=== PATIENT | female | born 1995 | race Two or more races ===

== ENCOUNTER 2024-03-30 01:27 | Emergency (ER) | payer BC, MEDICAID, SELFPAY ==
[2024-03-30 01:28] VITALS: BMI 56.5
[2024-03-30 01:59] VITALS: BP 159/83; PULSE 108; RESP 17; TEMP 37.7; O2SAT 97
[2024-03-30 02:12] LABS: Collection Type, Urine Clean Catch; Squamous Epithelial Cell,Urine 0 /hpf (0-5)
--- NOTE | 2024-03-30 02:21 | EDNOTE_ITS ---
Upper Respiratory Inf. RME/HPI General Chief Complaint: Fever Stated Complaint: FEVER, BACK LOWER BACK X2DAYS Time Seen by Provider: 03/30/24 01:42 Source: patient Arrival date/time: 03/30/24 01:27 28-year-old female presents emergency department complaining of fever, body aches, and lower back pain for 2 days. Patient denies any dysuria, vaginal bleeding, vomiting, or any other associated symptoms. Mode of arrival: ambulatory Limitations: no limitations Related Data Previous Rx's ?Medication ?Instructions ?Recorded albuterol sulfate 90 mcg/actuation 2 puff inhalation Q 6H PRN 10/28/21 aerosol inhaler (Ventolin HFA) shortness of breath or wheezing #8.5 grams fluticasone 100 mcg-salmeterol 50 1 inh inhalation BID #60 ea 12/10/21 mcg/dose blistr powdr for inhalation (Advair Diskus) prednisone 10 mg tablet See Taper PO BID #6 tabs 03/02 loratadine 10 mg tablet 10 mg PO QDAY #30 tabs 12/14 promethazine-DM 6.25 mg-15 mg/5 mL 5 ml PO Q6H PRN cou gh #200 mL 12/14/21 oral syrup albuterol sulfate 90 mcg/actuation 1 puff inhalation Q 6H PRN 04/07/23 aerosol inhaler (Ventolin HFA) shortness of breath or wheezing #6.7 grams ibuprofen 600 mg tablet 600 mg PO Q8H PRN pain #20 t abs 03/30/24 oseltamivir 75 mg capsule (Tamiflu) 75 mg PO Q12H 5 da ys #10 caps 03/30/24 Allergies Allergy/AdvReac Type Severity Reaction Status Date / Time No Known Allergies Allergy Verified 04/07/23 00:47 Review of Systems Review of Systems Systems Reviewed: All systems reviewed, normal except as documented Constitutional Constitutional: Reports system reviewed and no additional complaints, except as documented, Reports body ache(s), Denies chills and Reports fever(s) Eyes Eyes: Reports system reviewed and no additional complaints, except as documented and Denies change in vision ENT Ears, Nose, Mouth, and Throat: Reports system reviewed and no additional co mplaints, except as documented, Denies disequilibrium, Denies dizziness, Denies sore throat and Denies vertigo Cardiovascular Cardiovascular: Reports system reviewed and no additional complaints, except as documented, Denies chest pain and Denies dyspnea Respiratory Respiratory: Reports system reviewed and no additional complaints, except as documented, Denies chest congestion, Denies cough and Denies dyspnea Gastrointestinal Gastrointestinal: Reports system reviewed and no additional complaints, except as documented, Denies abdominal pain, Denies nausea and Denies vomiting Musculoskeletal Musculoskeletal: Reports system reviewed and no additional complaints, except as documented, Denies abnormal gait, Denies arthralgias and Reports back pain Integumentary/Breasts Skin/Breast: Reports system reviewed and no additional complaints, except as documented, Denies erythema, Denies rash and Denies wounds Neurologic Neurologic: Reports system reviewed and no additional complaints, except as documented, Denies abnormal gait, Denies disequilibrium, Denies dizziness and Denies vertigo Past Medical History Social History SMOKING STATUS: Never smoker ED Exam General Limitations: Present no limitations General appearance: Present alert and in no apparent distress Head Head exam: Present atraumatic Eye Eye exam: Present normal appearance, PERRL and EOMI ENT ENT exam: Present normal exam, normal oropharynx and mucous membranes moist Neck Neck exam: Present normal inspection, full ROM and trachea midline Chest Chest inspection: Present normal inspection and symmetric chest wall rise Respiratory Respiratory exam: Present normal lung sounds bilaterally Cardiovascular Cardiovascular exam: Present regular rate, normal rhythm and normal heart sounds Abdominal Exam Abdominal exam: Present soft and normal bowel sounds Extremities Exam Extremities exam: Present normal inspection and full ROM Back Exam Back exam: Present normal inspection and full ROM Neurological Exam Neurological exam: Present alert, oriented X3 and CN II-XII intact Psychiatric Psychiatric exam: Present normal affect and normal mood Skin Skin exam: Present warm, dry, intact and normal color Course Quality Measures none Orders Category Date Time Status Bedside Influenza A&B Antigen Test NOW Care 03/30/24 01:57 Completed HCG Qualitative,Urine Stat Lab 03/30/24 02:03 Completed Urinalysis, C/S if Indicated Stat Lab 03/30/24 02:03 Completed Acetaminophen Tab [Tylenol ES Tab] Med 03/30/24 02:23 Discontinued 1,000 mg PO X1 ONE Vital Signs Vital signs: Vital Signs Temperature 99.8 F 03/30/24 01:59 Pulse Rate 108 H 03/30/24 01:59 Respiratory Rate 17 03/30/24 01:59 Blood Pressure 159/83 H 03/30/24 01:59 Pulse Oximetry (%) 97 03/30/24 01:59 Oxygen Delivery Method Room Air 03/30/24 01:59 97% room air within normal limits Upper Respiratory Infection MDM Narrative MDM Narrative:: 28-year-old female presents emergency department complaining of fever, body aches, and lower back pain for 2 days. Patient denies any dysuria, vaginal bleeding, vomiting, or any other associated symptoms. Urinalysis unremarkable. No adventitious lung sounds on auscultation. Patient appears nontoxic and is hemodynamically stable. No costovertebral angle tenderness. Influenza positive which is likely the cause of symptoms. Onset within 48 hours we will treat with Tamiflu. Patient data External records reviewed:: [facility] previous records Clinical information provided by:: patient Social determinants that could affect healthcare access:: none Patient has the following chronic illnesses:: None How is presenting disease/condition affected by chronic disease/condition?: no chronic disease Evaluation data The following diagnostics were reviewed and interpreted by me:: lab results Lab and/or radiology exams considered but not ordered:: Ordered Interpretation Summary: Interpreted by me Medications / Prescriptions Medications or Prescriptions considered but not ordered:: N/A Medication administrations:: Medication Administration History Discontinued Medications Acetaminophen (Acetaminophen 500 Mg Tablet) 1,000 mg PO X1 ONE Stop: 03/30/24 02:24 Last Admin: 03/30/24 02:28 Dose: 1,000 mg Documented By: KF N/A Consultations Consultation(s) initiated? (list below): No Diagnosis Upper Respiratory Differential Diagnosis: upper respiratory infection, otitis media, sinusitis, viral infection, bronchitis, influenza and pharyngitis Most likely diagnosis given after review of the tests above:: Influenza Admission Indicated Admission indicated?: not indicated Admission Request Was there a request for admission?: No Disposition Plan Disposition Plan: Discharge Discharge Attestation Discharge Attestation: The patient and all family members were given an opportunity to ask questions and understood the discharge instructions. Discharge instructions specifically effects, indications for sooner follow up or return to the emergency department, and the expected course of current diagnosis. Patient condition: Stable Discharge Plan Plan Patient Disposition: HOME (Self Care) Disposition Comment: Stable Prescriptions/Referrals Prescriptions/Med Rec: New oseltamivir [Tamiflu] 75 mg capsule 75 mg PO Q12H 5 Days Qty: 10 0RF ibuprofen 600 mg tablet 600 mg PO Q8H PRN (Reason: pain) Qty: 20 0RF No Action albuterol sulfate [Ventolin HFA] 90 mcg/actuation HFA aerosol inhaler 2 puff inhalation Q6H PRN (Reason: shortness of breath or wheezing) Qty: 8.5 0RF fluticasone propion-salmeterol [Advair Diskus] 100-50 mcg/dose blister with device 1 inh inhalation BID Qty: 60 0RF prednisone 10 mg tablet See Taper PO BID Qty: 6 0RF Taper: Prednisone Taper 20 mg DAILY for 2 Days and 0 Hour 10 mg DAILY for 2 Days and 0 Hour 5 mg DAILY for 7 Days and 0 Hour promethazine-DM 6.25-15 mg/5 mL syrup 5 ml PO Q6H PRN (Reason: cough) Qty: 200 0RF loratadine 10 mg tablet 10 mg PO QDAY Qty: 30 0RF albuterol sulfate [Ventolin HFA] 90 mcg/actuation HFA aerosol inhaler 1 puff inhalation Q6H PRN (Reason: shortness of breath or wheezing) Qty: 6.7 0RF Referrals: Temporary Provider,ED [Physician] - In 1 week Problem List Clinical Impression: Influenza Patient/Caregiver Discharge Instructions Education Materials: ED Influenza (Adult) Additional Instructions: Drink plenty of fluids and get plenty of rest. Take Tylenol or ibuprofen as needed for fever or pain. Take Tamiflu as prescribed. Follow-up with primary care provider in 2 to 3 days. Return to emergency department for any worsening symptoms or as needed. Print Language: Japanese Stand Alone Forms: Ella Award Info., Patient Portal Info Letter PA/CUSTOMER OPERATIONS ASSOCIATE Supervising Physician PA/CUSTOMER OPERATIONS ASSOCIATE Supervising Physician: Dr. Jurado
[2024-03-30] MEDS: ACETAMINOPHEN 500 MG TABLET 1000 MG PO (02:28)
[2024-03-30 02:29] LABS: HCG Qualitative,Urine Negative
[2024-03-30 02:43] LABS: Bacteria,Urine Rare; Bilirubin,Urine Negative (Negative); Blood,Urine Negative (Negative); Clarity,Urine Clear (Clear/Hazy); Color,Urine Colorless (Lt Yel-Yel); Culture Indicated,Urine Not Indicated; Glucose, Urine Negative (Negative); Ketones,Urine Negative (Negative); Leukocyte Esterase,Urine Negative (Negative); Nitrite,Urine Negative (Negative); Protein,Urine Negative (Neg - Trace); RBC,Urine 1 /hpf (0-3); Specific Gravity,Urine 1.011 (1.001-1.035); Urobilinogen,Urine Negative mg/dL (0.0-1.0); WBC,Urine < 1 /hpf (0-5)
== END 2024-03-30 03:06 | disposition home or self-care (01) ==
PROVIDERS: Emergency Provider Emergency Medicine; PCP Family Medicine
DX: J11.1 Influenza due to unidentified influenza virus with other respiratory manifestations (principal)
CPT/HCPCS: 81001; 81025; 87400; 99283; A9270

== ENCOUNTER 2024-08-10 09:03 | Emergency (ER) | payer BC, MEDICAID, SELFPAY ==
[2024-08-10 09:04] VITALS: BMI 59.9
--- NOTE | 2024-08-10 09:05 | EKG_ITS ---
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
[2024-08-10 09:13] VITALS: BP 155/90; PULSE 61; RESP 19; TEMP 36.4; O2SAT 97
--- NOTE | 2024-08-10 09:21 | XR_ITS ---
Examination: PA lateral chest 2 views TECHNIQUE: Upright PA lateral chest 2 views Date and time: August 10, 2024 0941 hours INDICATIONS: Left-sided chest pain beginning one week ago. FINDINGS: Normal heart size Lungs are clear. The osseous structures are intact IMPRESSION: No active disease
--- NOTE | 2024-08-10 09:21 | PD.EDRME ---
Rapid Medical Screening Exam RME Arrival date/time: 08/10/24 09:03 29-year-old female with no known medical history presents to the emergency room with a chief complaint of 8 out of 10 sternal chest pain that radiates up her left shoulder and arm x 2 hours I have greeted and performed a focused initial assessment of this patient. A comprehensive ED assessment and evaluation of the patient, analysis of all test results, and completion of the medical decision making process will be conducted by additional ED providers. Chief Complaint: Chest Pain Vital signs: Vital Signs Temperature 97.6 F 08/10/24 09:13 Pulse Rate 61 08/10/24 09:13 Respiratory Rate 19 08/10/24 09:13 Blood Pressure 155/90 H 08/10/24 09:13 Pulse Oximetry (%) 97 08/10/24 09:13 Oxygen Delivery Method Room Air 08/10/24 09:13 Vital signs reviewed by provider: Yes
[2024-08-10 09:45] LABS: Collection Type, Urine Clean Catch
[2024-08-10 09:50] LABS: Bilirubin,Urine Negative (Negative); Blood,Urine Negative (Negative); Clarity,Urine Clear (Clear/Hazy); Color,Urine Lt-Yellow (Lt Yel-Yel); Glucose, Urine Negative (Negative); Ketones,Urine Negative (Negative); Leukocyte Esterase,Urine Negative (Negative); Nitrite,Urine Negative (Negative); PH,Urine 6.0 (5.0-7.0); Protein,Urine Negative (Neg - Trace); RBC,Urine 2 /hpf (0-3); Specific Gravity,Urine 1.024 (1.001-1.035); Squamous Epithelial Cell,Urine 1 /hpf (0-5); Urobilinogen,Urine Negative mg/dL (0.0-1.0); WBC,Urine 1 /hpf (0-5)
[2024-08-10 09:58] LABS: Amphetamine/Methamp Scrn,U Negative (Negative); Barbiturate Screen,Urine Negative (Negative); Benzodiazepines Screen,Urine Negative (Negative); Benzoylecgonine Screen, Ur Negative (Negative); Fentanyl Screen,Urine Negative (Negative); Opiate Screen,Urine Negative (Negative); THC Screen,Urine Negative (Negative)
[2024-08-10 10:08] LABS: Basophils # (Auto) 0.0 Thou/mm3 (0.0-0.2); Basophils % (Auto) 0 % (0-2.5); Eosinophils # (Auto) 0.3 Thou/mm3 (0.0-0.5); Eosinophils % (Auto) 4 % (0-10); Hematocrit 44.1 % (36.0-46.0); Hemoglobin 14.2 g/dL (12.0-16.0); Immature Granulocytes Auto 0.02 Thou/mm3 (0.00-0.00); Lymphocytes # (Auto) 2.2 Thou/mm3 (1.0-4.8); Lymphocytes % (Auto) 33 % (10-50); Mean Corpuscular HGB Conc 32.2 g/dl (31.0-37.0); Mean Corpuscular Hemoglobin 26.9 pg (25.0-35.0); Mean Corpuscular Volume 84 fL (80-100); Monocytes # (Auto) 0.3 Thou/mm3 (0.0-0.8); Monocytes % (Auto) 5 % (0-12); Neutrophils # (Auto) 3.9 Thou/mm3 (1.8-7.7); Neutrophils % (Auto) 58 % (37-80); Nucleated Red Blood Cell # 0.00 Thou/mm3 (0.00-0.00); Nucleated Red Blood Cell % 0 /100 WBC (0); Platelet Count 235 Thou/mm3 (140-440); RDW Standard Deviation 42.5 fL (36.4-46.3); Red Blood Count 5.28 Miln/mm3 (4.00-5.20); White Blood Count 6.8 Thou/mm3 (3.6-11.0)
[2024-08-10 10:29] LABS: B-Type Natriuretic Peptide < 20 pg/mL (0-100)
[2024-08-10 10:33] LABS: Alanine Aminotransferase 19 U/L (10-49); Albumin, Serum 4.4 gm/dL (3.5-5.0); Albumin/Globulin Ratio 1.5 (1.2-2.2); Alkaline Phosphatase 116 U/L (46-116); Anion Gap 5 (7-16); Aspartate Amino Transferase 20 U/L (0-34); BUN/Creatinine Ratio 13 Ratio (12-20); Bilirubin,Total 0.4 mg/dL (0.3-1.2); Blood Urea Nitrogen 10 mg/dL (9-23); Calcium 9.1 mg/dL (8.3-10.6); Calcium (Corrected) 9.1 mg/dL (8.5-10.1); Carbon Dioxide 29.0 mMol/L (20.0-31.0); Chloride 105 mMol/L (98-107); Creatinine (Component) 0.8 mg/dL (0.6-1.3); Estimated Creatinine Clearance 160.1 mL/min (>60); Globulin 2.9 gm/dL (2.3-3.5); Glucose 105 mg/dL (74-106); Magnesium 2.0 mg/dL (1.6-2.6); Osmolality,Calculated 276 (275-295); Potassium 4.4 mMol/L (3.4-5.1); Sodium 139 mMol/L (136-145); Total Protein 7.3 gm/dL (5.7-8.2); Troponin I < 0.002 ng/mL (0.0-0.045); eGFR > 60 See Note
[2024-08-10 13:35] VITALS: BP 139/83; PULSE 60; RESP 18; TEMP 36.7; O2SAT 99
--- NOTE | 2024-08-10 13:43 | EDNOTE_ITS ---
<Statement entered by Verona Dorsey MD - 08/19/24 19:19> As co-signing physician, I was present and available for consult prn. I concur with the plan and care as documented by the midlevel provider. ED Chest Pain RME/HPI General Chief Complaint: Chest Pain Stated Complaint: L) CHEST PAIN RADIATING DOWN L) ARM, STARTED 07:45 Arrival date/time: 08/10/24 09:03 RME / HPI RME / HPI narrative: 08/10/24 09:03 29-year-old female with no known medical history presents to the emergency room with a chief complaint of 8 out of 10 sternal chest pain that radiates up her left shoulder and arm x 2 hours I have greeted and performed a focused initial assessment of this patient. A comprehensive ED assessment and evaluation of the patient, analysis of all test results, and completion of the medical decision making process will be conducted by additional ED providers. DR. DORSEY MAIN ED EVALUATION 29 year old female with no stated medical history presents to the ED for evaluation of chest pain. Described as sharp stabbing in sensation that is located most to the left side of chest that radiates around to her back. Occurring intermittently since onset 2 hours ADMISSION LIAISON and rated as 8/10 in severity. Patient states her pain is aggravated with palpating chest and movements. Denies any history of similar symptoms or other associated symptoms. Denies fever, chills, sweating. Denies cough, shortness of breath. Denies nausea, vomiting. Related Data Previous Rx's ?Medication ?Instructions ?Recorded albuterol sulfate 90 mcg/actuation 2 puff inhalation Q 6H PRN 10/28/21 aerosol inhaler (Ventolin HFA) shortness of breath or wheezing #8.5 grams fluticasone 100 mcg-salmeterol 50 1 inh inhalation BID #60 ea 12/10/21 mcg/dose blistr powdr for inhalation (Advair Diskus) prednisone 10 mg tablet See Taper PO BID #6 tabs 03/02 loratadine 10 mg tablet 10 mg PO QDAY #30 tabs 12/14 promethazine-DM 6.25 mg-15 mg/5 mL 5 ml PO Q6H PRN cou gh #200 mL 12/14/21 oral syrup albuterol sulfate 90 mcg/actuation 1 puff inhalation Q 6H PRN 04/07/23 aerosol inhaler (Ventolin HFA) shortness of breath or wheezing #6.7 grams ibuprofen 600 mg tablet 600 mg PO Q8H PRN pain #20 t abs 03/30/24 Allergies Allergy/AdvReac Type Severity Reaction Status Date / Time No Known Allergies Allergy Verified 08/10/24 09:05 Review of Systems Review of Systems Systems Reviewed: All systems reviewed, normal except as documented Past Medical History Social History SMOKING STATUS: Never smoker ED Exam Narrative Physical exam: GENERAL APPEARANCE:? alert and oriented x 4, well-developed, well-nourished, no acute distress HEENT: normocephalic, atraumatic NECK: supple LUNGS: no respiratory distress, normal effort HEART: good peripheral perfusion CHEST: Left sided chest wall tenderness to palpation ABDOMEN: non distended EXTREMITIES:? atraumatic NEUROLOGIC: awake; alert and oriented x4; cranial nerves II-XII grossly intact PSYCHIATRIC:? appropriate mood and affect SKIN: warm, dry, normal color; no rashes Course Quality Measures none Orders Category Date Time Status EKG (ED ONLY) *Do not use* NOW Care 08/10/24 09:06 Completed EKG (ED Only) Stat Exams 08/10/24 09:05 Draft XR chest 2V Stat Exams 08/10/24 09:21 Completed B-Type Natriuretic Peptide Stat Lab 08/10/24 09:55 Completed CBC Stat Lab 08/10/24 09:55 Completed Comprehensive Metabolic Panel Stat Lab 08/10/24 09:55 Completed Drug Screen,Urine Stat Lab 08/10/24 09:35 Completed Magnesium Stat Lab 08/10/24 09:55 Completed Troponin I Stat Lab 08/10/24 09:55 Completed Urinalysis Stat Lab 08/10/24 09:35 Completed Ketorolac Inj [Toradol Inj] Med 08/10/24 13:42 Discontinued 30 mg IM X1 ONE Vital Signs Vital signs: Vital Signs Temperature 97.6 F 08/10/24 09:13 Pulse Rate 61 08/10/24 09:13 Respiratory Rate 19 08/10/24 09:13 Blood Pressure 155/90 H 08/10/24 09:13 Pulse Oximetry (%) 97 08/10/24 09:13 Oxygen Delivery Method Room Air 08/10/24 09:13 Pulse ox is 97% on room air which is adequate. Chest Pain MDM Narrative MDM Narrative:: I, Linda Gtz, am scribing for and in the presence of Dr. Dorsey. Patient data External records reviewed:: [facility] previous records (I reviewed ED visit on 03/30/2024 for Influenza ) Clinical information provided by:: patient Social determinants that could affect healthcare access:: none Patient has the following chronic illnesses:: None How is presenting disease/condition affected by chronic disease/condition?: no chronic disease Evaluation data The following diagnostics were reviewed and interpreted by me:: lab results, radiology exam(s) and EKG tracing(s) (08/10/2024 @ 9:10 AM. Sinus rhythm, rate 61, no acute ischemic changes, no STEMI. ) Lab and/or radiology exams considered but not ordered:: None Interpretation Summary: Ordering Physician: Lucas Willoughby Date of Service: 08/10/24 Procedure(s): XR chest 2V Accession Number(s): [id number] cc: Lucas Willoughby; Maverick Moy MD; Stu Wilson MD~ Examination: PA lateral chest 2 views TECHNIQUE: Upright PA lateral chest 2 views Date and time: August 10, 2024 0941 hours INDICATIONS: Left-sided chest pain beginning one week ago. FINDINGS: Normal heart size Lungs are clear. The osseous structures are intact IMPRESSION: No active disease Dictated By: Stu Wilson MD Signed By: <Electronically signed by Stu Wilson MD in OV> 08/10/24 1013 Medications / Prescriptions Medications or Prescriptions considered but not ordered:: None Medication administrations:: Medication Administration History Discontinued Medications Ketorolac Tromethamine (Ketorolac Inj 30 Mg/Ml Vial) 30 mg IM X1 ONE Stop: 08/10/24 13:43 Last Admin: 08/10/24 13:50 Dose: 30 mg Documented By: GM See above Consultations Consultation(s) initiated? (list below): No Diagnosis Chest Pain Differential Diagnosis: stable angina, atypical chest pain, st elevation myocardial infarction, costochondritis, chest pain, biliary colic and other (musculoskeletal pain ) Most likely diagnosis given after review of the tests above:: Chest wall pain Admission Indicated Admission indicated?: not indicated Admission Request Was there a request for admission?: No Disposition Plan Disposition Plan: Discharge Discharge Attestation Discharge Attestation: The patient and all family members were given an opportunity to ask questions and understood the discharge instructions. Discharge instructions specifically effects, indications for sooner follow up or return to the emergency department, and the expected course of current diagnosis. Patient condition: Stable Discharge Plan Plan Patient Disposition: HOME (Self Care) Prescriptions/Referrals Prescriptions/Med Rec: No Action albuterol sulfate [Ventolin HFA] 90 mcg/actuation HFA aerosol inhaler 2 puff inhalation Q6H PRN (Reason: shortness of breath or wheezing) Qty: 8.5 0RF fluticasone propion-salmeterol [Advair Diskus] 100-50 mcg/dose blister with device 1 inh inhalation BID Qty: 60 0RF prednisone 10 mg tablet See Taper PO BID Qty: 6 0RF Taper: Prednisone Taper 20 mg DAILY for 2 Days and 0 Hour 10 mg DAILY for 2 Days and 0 Hour 5 mg DAILY for 7 Days and 0 Hour ibuprofen 600 mg tablet 600 mg PO Q8H PRN (Reason: pain) Qty: 20 0RF promethazine-DM 6.25-15 mg/5 mL syrup 5 ml PO Q6H PRN (Reason: cough) Qty: 200 0RF loratadine 10 mg tablet 10 mg PO QDAY Qty: 30 0RF albuterol sulfate [Ventolin HFA] 90 mcg/actuation HFA aerosol inhaler 1 puff inhalation Q6H PRN (Reason: shortness of breath or wheezing) Qty: 6.7 0RF Referrals: Maverick Moy MD [Primary Care Provider] - In 1 week Problem List Clinical Impression: Chest wall pain Patient/Caregiver Discharge Instructions Education Materials: ED Chest Wall Pain, Costochondritis Print Language: Telugu Stand Alone Forms: Ella Award Info., Patient Portal Info Letter
[2024-08-10] MEDS: KETOROLAC INJ 30 MG/ML VIAL IM (13:50)
== END 2024-08-10 13:55 | disposition home or self-care (01) ==
PROVIDERS: Nurse Practitioner Family; Emergency Provider Emergency Medicine; PCP Family Medicine
DX: R07.89 Other chest pain (principal)
CPT/HCPCS: 36415; 71046; 80053; 80307; 81001; 83735; 83880; 84484; 85025; 96372; J1885

== ENCOUNTER 2025-01-16 09:42 | Emergency (ER) | payer BC, MEDICAID, SELFPAY ==
[2025-01-16 09:58] VITALS: BP 146/90; PULSE 67; RESP 18; TEMP 36.8; O2SAT 97; BMI 59.9
--- NOTE | 2025-01-16 10:04 | EKG_ITS ---
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
--- NOTE | 2025-01-16 10:04 | XR_ITS ---
EXAMINATION: PA chest single view TECHNIQUE: Upright PA chest single view Date and time: January 16, 2025, 1049 hours INDICATIONS: Shortness of breath 1 week. FINDINGS: Normal heart size Lungs are clear. Intact osseous structures IMPRESSION: No active disease
--- NOTE | 2025-01-16 10:05 | EDNOTE_ITS ---
ED SOB =RME/HPI General Chief Complaint: Chest Pain Stated Complaint: SOB X 1 WK, CHEST PAIN 08/18 Time Seen by Provider: 01/16/25 09:53 Source: patient Arrival date/time: 01/16/25 09:42 29-year-old female with no known medical history presents to the emergency room with a chief complaint of shortness of breath, cough, congestion, chest pain x 3 days Mode of arrival: ambulatory Limitations: no limitations Related Data Previous Rx's ?Medication ?Instructions ?Recorded albuterol sulfate 90 mcg/actuation 2 puff inhalation Q 6H PRN 10/28/21 aerosol inhaler (Ventolin HFA) shortness of breath or wheezing #8.5 grams fluticasone 100 mcg-salmeterol 50 1 inh inhalation BID #60 ea 12/10/21 mcg/dose blistr powdr for inhalation (Advair Diskus) prednisone 10 mg tablet See Taper PO BID #6 tabs 03/02 loratadine 10 mg tablet 10 mg PO QDAY #30 tabs 12/14 promethazine-DM 6.25 mg-15 mg/5 mL 5 ml PO Q6H PRN cou gh #200 mL 12/14/21 oral syrup albuterol sulfate 90 mcg/actuation 1 puff inhalation Q 6H PRN 04/07/23 aerosol inhaler (Ventolin HFA) shortness of breath or wheezing #6.7 grams ibuprofen 600 mg tablet 600 mg PO Q8H PRN pain #20 t abs 03/30/24 albuterol sulfate 90 mcg/actuation 2 puff inhalation Q 6H PRN 01/16/25 aerosol inhaler (Ventolin HFA) shortness of breath or wheezing #6.7 grams prednisone 20 mg tablet 40 mg (2 x 20 mg) PO QDAY 4 days 01/16/25 #8 tabs Allergies Allergy/AdvReac Type Severity Reaction Status Date / Time No Known Allergies Allergy Verified 01/16/25 09:45 Review of Systems Review of Systems Systems Reviewed: All systems reviewed, normal except as documented Constitutional Constitutional: Reports system reviewed and no additional complaints, except as documented, Denies fatigue, Denies fever(s), Denies headache(s) and Denies weakness Eyes Eyes: Reports system reviewed and no additional complaints, except as documented, Denies blurry vision and Denies change in vision ENT Ears, Nose, Mouth, and Throat: Reports system reviewed and no additional complaints, except as documented, Denies otalgia, Denies headache(s), Denies nasal congestion, Denies throat swelling and Denies vertigo Cardiovascular Cardiovascular: Reports system reviewed and no additional complaints, except as documented, Denies chest pain, Denies dyspnea and Denies dyspnea on exertion Respiratory Respiratory: Reports system reviewed and no additional complaints, except as documented, Reports chest congestion, Reports cough, Denies dyspnea, Denies dyspnea on exertion and Reports wheezing Gastrointestinal Gastrointestinal: Reports system reviewed and no additional complaints, except as documented, Denies abdominal pain, Denies cramping, Denies nausea and Denies vomiting Genitourinary Genitourinary: Reports system reviewed and no additional complaints, except as documented Musculoskeletal Musculoskeletal: Reports system reviewed and no additional complaints, except as documented and Denies back pain Integumentary/Breasts Skin/Breast: Reports system reviewed and no additional complaints, except as documented and Denies wounds Neurologic Neurologic: Reports system reviewed and no additional complaints, except as documented, Denies confusion, Denies headache(s), Denies lack of coordination, Denies vertigo and Denies weakness Psychiatric Psychiatric: Reports system reviewed and no additional complaints, except as documented, Denies anxiety, Denies confusion, Denies depression, Denies paranoia, Denies suicidal ideation and Denies tactile hallucinations Endocrine Endocrine: Reports system reviewed and no additional complaints, except as documented and Denies fatigue Hematologic/Lymphatic Hematologic/Lymphatic: Reports system reviewed and no additional complaints, except as documented and Denies lymphadenopathy Allergic/Immunologic Allergic/Immunologic: Reports system reviewed and no additional complaints, except as documented, Denies throat swelling, Denies urticaria and Reports wheezing Past Medical History Social History SMOKING STATUS: Never smoker ED Exam General Limitations: Present no limitations General appearance: Present alert and in no apparent distress Head Head exam: Present atraumatic Eye Eye exam: Present normal appearance, PERRL and EOMI ENT ENT exam: Present normal exam, normal oropharynx and mucous membranes moist Neck Neck exam: Present normal inspection, full ROM and trachea midline Chest Chest inspection: Present normal inspection and symmetric chest wall rise Respiratory Respiratory exam: Present normal lung sounds bilaterally and wheezes Expanded Respiratory Exam Location: Left: wheezes, Right: wheezes and Upper: wheezes Cardiovascular Cardiovascular exam: Present regular rate, normal rhythm and normal heart sounds Abdominal Exam Abdominal exam: Present soft and normal bowel sounds Extremities Exam Extremities exam: Present normal inspection and full ROM Back Exam Back exam: Present normal inspection and full ROM Neurological Exam Neurological exam: Present alert, oriented X3 and CN II-XII intact Psychiatric Psychiatric exam: Present normal affect and normal mood Skin Skin exam: Present warm, dry, intact and normal color Course Quality Measures none Orders Category Date Time Status EKG (ED ONLY) *Do not use* NOW Care 01/16/25 10:04 Completed EKG (ED Only) Stat Exams 01/16/25 10:04 Draft XR chest 1V portable Stat Exams 01/16/25 10:04 Completed B-Type Natriuretic Peptide Stat Lab 01/16/25 10:10 Completed CBC Stat Lab 01/16/25 10:10 Completed COVID-19 Antigen (In-House) Stat Lab 01/16/25 11:44 Received Comprehensive Metabolic Panel Stat Lab 01/16/25 10:10 Completed Influenza A & B Rapid Panel Stat Lab 01/16/25 11:44 Received Magnesium Stat Lab 01/16/25 10:10 Completed Troponin I Stat Lab 01/16/25 10:10 Completed Urinalysis, C/S if Indicated Stat Lab 01/16/25 10:40 Completed Urine Culture Stat Lab 01/16/25 10:40 Received Albuterol/Ipratr Rt Yasmin [Duoneb Rt Yasmin] Med 01/16/25 10:04 Discontinued 3 ml INH X1 ONE dexAMETHasone INJ [Decadron Inj] Med 01/16/25 10:04 Discontinued 10 mg PO X1 ONE Vital Signs Vital signs: Vital Signs Temperature 98.2 F 01/16/25 09:58 Pulse Rate 67 01/16/25 09:58 Respiratory Rate 18 01/16/25 09:58 Blood Pressure 146/90 H 01/16/25 09:58 Pulse Oximetry (%) 97 01/16/25 09:58 Oxygen Delivery Method Room Air 01/16/25 09:58 PROCEDURES: EKG Interpretation #1: Date of EK01/16/25 Rate: 69 Interpretation: Reviewed by me EKG Impression: Normal sinus rhythm Shortness of Breath / Dyspnea MDM Narrative MDM Narrative:: 29-year-old female with no known medical history presents to the emergency room with a chief complaint of shortness of breath, cough, congestion, chest pain x 3 days Patient is hemodynamically stable and in no apparent distress. Patient is afebrile not tachycardic not tachypneic and her O2 saturation is 97% on room air Physical examination shows bilateral upper lobe wheezing with auscultation. The patient was given a breathing treatment and steroids and reevaluated in 45 minutes with significant improvement of her symptoms. Patient was also complaining of chest pain. EKG shows normal sinus rhythm at [address] deviation Chest x-ray was negative for any pneumonia COVID-19 influenza test were both negative Patient was discharged and educated to follow-up with primary care provider in the next 24 to 48 hours and return to the emergency room for any evidence of worsening signs or symptoms Patient data External records reviewed:: [facility] previous records Clinical information provided by:: patient Social determinants that could affect healthcare access:: none Patient has the following chronic illnesses:: No chronic illness How is presenting disease/condition affected by chronic disease/condition?: no chronic disease Evaluation data The following diagnostics were reviewed and interpreted by me:: lab results and radiology exam(s) Lab and/or radiology exams considered but not ordered:: Labs and radiology exams considered and ordered Interpretation Summary: Chest [id number]: Normal heart size Lungs are clear. Intact osseous structures IMPRESSION: No active disease Medications / Prescriptions Medications or Prescriptions considered but not ordered:: Medication given Medication administrations:: Medication Administration History Discontinued Medications Albuterol/Ipratropium (Albuterol/Ipratropium (Duoneb) Rt Yasmin 3 Ml Nebu) 3 ml INH X1 ONE Stop: 01/16/25 10:05 Last Admin: 01/16/25 11:26 Dose: 3 ml Documented By: MW Dexamethasone Sodium Phosphate (Dexamethasone Sod Phos Inj 10 Mg/Ml Vial) 10 mg PO X1 ONE Stop: 01/16/25 10:05 Last Admin: 01/16/25 10:58 Dose: 10 mg Documented By: LP Medication given Consultations Consultation(s) initiated? (list below): No Diagnosis Shortness of Breath Differential Diagnosis: community acquired pneumonia, asthma with exacerbation and other (Upper respiratory infection) Most likely diagnosis given after review of the tests above:: Upper respiratory infection Admission Indicated Admission indicated?: not indicated Admission Request Was there a request for admission?: No Disposition Plan Disposition Plan: Discharge Discharge Attestation Discharge Attestation: The patient and all family members were given an opportunity to ask questions and understood the discharge instructions. Discharge instructions specifically effects, indications for sooner follow up or return to the emergency department, and the expected course of current diagnosis. Patient condition: Stable Discharge Plan Plan Patient Disposition: HOME (Self Care) Discharge Disposition comment: Stable Prescriptions/Referrals Prescriptions/Med Rec: New prednisone 20 mg tablet 40 mg PO QDAY 4 Days Qty: 8 0RF albuterol sulfate [Ventolin HFA] 90 mcg/actuation HFA aerosol inhaler 2 puff inhalation Q6H PRN (Reason: shortness of breath or wheezing) Qty: 6.7 0RF No Action albuterol sulfate [Ventolin HFA] 90 mcg/actuation HFA aerosol inhaler 2 puff inhalation Q6H PRN (Reason: shortness of breath or wheezing) Qty: 8.5 0RF fluticasone propion-salmeterol [Advair Diskus] 100-50 mcg/dose blister with device 1 inh inhalation BID Qty: 60 0RF prednisone 10 mg tablet See Taper PO BID Qty: 6 0RF Taper: Prednisone Taper 20 mg DAILY for 2 Days and 0 Hour 10 mg DAILY for 2 Days and 0 Hour 5 mg DAILY for 7 Days and 0 Hour ibuprofen 600 mg tablet 600 mg PO Q8H PRN (Reason: pain) Qty: 20 0RF promethazine-DM 6.25-15 mg/5 mL syrup 5 ml PO Q6H PRN (Reason: cough) Qty: 200 0RF loratadine 10 mg tablet 10 mg PO QDAY Qty: 30 0RF albuterol sulfate [Ventolin HFA] 90 mcg/actuation HFA aerosol inhaler 1 puff inhalation Q6H PRN (Reason: shortness of breath or wheezing) Qty: 6.7 0RF Referrals: Ravinder Ruiz PA-C [Primary Care Provider] - In 1 week Problem List Clinical Impression: Chest pain, Upper respiratory infection, viral Patient/Caregiver Discharge Instructions Education Materials: ED Chest Pain, Noncardiac, ED URI, Viral, No Abx (Adult) Additional Instructions: Please follow-up with your primary care provider in the next 24 to 48 hours. You tested negative for influenza, COVID-19. Your chest x-ray was negative for pneumonia. Your most likely source is an upper viral respiratory infection. The treatment for this is symptom management. Please continue to take Tylenol and ibuprofen for fever management. Please increase your oral fluid intake. For any evidence of worsening signs or symptoms please return to the emergency room immediately Print Language: Romansh Stand Alone Forms: Ella Award Info., Work/School Release, Patient Portal Info Letter PA/[employer] PHOTO INSPECTOR Supervising Physician PA/[employer] PHOTO INSPECTOR Supervising Physician: Dr. Hernández
[2025-01-16 10:25] LABS: Basophils # (Auto) 0.0 Thou/mm3 (0.0-0.2); Basophils % (Auto) 0 % (0-2.5); Eosinophils # (Auto) 0.7 Thou/mm3 (0.0-0.5); Eosinophils % (Auto) 9 % (0-10); Hematocrit 43.0 % (36.0-46.0); Hemoglobin 13.6 g/dL (12.0-16.0); Immature Granulocytes Auto 0.03 Thou/mm3 (0.00-0.00); Lymphocytes # (Auto) 2.5 Thou/mm3 (1.0-4.8); Lymphocytes % (Auto) 31 % (10-50); Mean Corpuscular HGB Conc 31.6 g/dl (31.0-37.0); Mean Corpuscular Hemoglobin 26.5 pg (25.0-35.0); Mean Corpuscular Volume 84 fL (80-100); Monocytes # (Auto) 0.5 Thou/mm3 (0.0-0.8); Monocytes % (Auto) 6 % (0-12); Neutrophils # (Auto) 4.4 Thou/mm3 (1.8-7.7); Neutrophils % (Auto) 54 % (37-80); Nucleated Red Blood Cell # 0.00 Thou/mm3 (0.00-0.00); Nucleated Red Blood Cell % 0 /100 WBC (0); Platelet Count 244 Thou/mm3 (140-440); RDW Standard Deviation 42.5 fL (36.4-46.3); Red Blood Count 5.14 Miln/mm3 (4.00-5.20); White Blood Count 8.2 Thou/mm3 (3.6-11.0)
[2025-01-16 10:41] LABS: B-Type Natriuretic Peptide < 20 pg/mL (0-100)
[2025-01-16 10:42] LABS: Alanine Aminotransferase 23 U/L (10-49); Albumin, Serum 4.6 gm/dL (3.5-5.0); Albumin/Globulin Ratio 1.5 (1.2-2.2); Alkaline Phosphatase 108 U/L (46-116); Anion Gap 9 (7-16); Aspartate Amino Transferase 18 U/L (0-34); BUN/Creatinine Ratio 11 Ratio (12-20); Bilirubin,Total 0.4 mg/dL (0.3-1.2); Blood Urea Nitrogen 8 mg/dL (9-23); Calcium 9.7 mg/dL (8.3-10.6); Calcium (Corrected) 9.7 mg/dL (8.5-10.1); Carbon Dioxide 28.3 mMol/L (20.0-31.0); Chloride 104 mMol/L (98-107); Creatinine (Component) 0.7 mg/dL (0.6-1.3); Estimated Creatinine Clearance 182.9 mL/min (>60); Globulin 3.1 gm/dL (2.3-3.5); Glucose 105 mg/dL (74-106); Magnesium 1.8 mg/dL (1.6-2.6); Osmolality,Calculated 279 (275-295); Potassium 3.8 mMol/L (3.4-5.1); Sodium 141 mMol/L (136-145); Total Protein 7.7 gm/dL (5.7-8.2); Troponin I < 0.002 ng/mL (0.0-0.045); eGFR > 60 See Note
[2025-01-16 10:48] LABS: Collection Type, Urine Clean Catch
[2025-01-16 11:12] LABS: Bacteria,Urine 1+; Bilirubin,Urine Negative (Negative); Blood,Urine Negative (Negative); Color,Urine Yellow (Lt Yel-Yel); Glucose, Urine Trace (Negative); Ketones,Urine Negative (Negative); Leukocyte Esterase,Urine Positive (Negative); Nitrite,Urine Negative (Negative); PH,Urine 6.0 (5.0-7.0); Protein,Urine Trace (Neg - Trace); RBC,Urine 1 /hpf (0-3); Specific Gravity,Urine 1.032 (1.001-1.035); Squamous Epithelial Cell,Urine 5 /hpf (0-5); Urobilinogen,Urine Negative mg/dL (0.0-1.0); WBC,Urine 9 /hpf (0-5)
[2025-01-16 11:15] LABS: Clarity,Urine Hazy (Clear/Hazy); Culture Indicated,Urine Yes
[2025-01-16] MEDS: ALBUTEROL/IPRATROPIUM (Duoneb) RT SOL 3 ML NEBU INH (11:26)
[2025-01-16 11:29] VITALS: PULSE 67; RESP 18; O2SAT 100
[2025-01-16 12:10] LABS: Influenza A Ag Negative; Influenza B Ag Negative
[2025-01-16 12:36] LABS: COVID-19 Antigen (In-House) Negative (Negative)
== END 2025-01-16 12:42 | disposition home or self-care (01) ==
PROVIDERS: Nurse Practitioner Family; Emergency Provider Emergency Medicine
DX: J06.9 Acute upper respiratory infection, unspecified (principal); R07.9 Chest pain, unspecified; I49.8 Other specified cardiac arrhythmias
CPT/HCPCS: 36415; 71045; 80053; 81001; 83735; 83880; 84484; 85025; 87086; 87502; 87811; 93005; 94640; 99283; A9270; J1100